=== PATIENT | female | born 1980 | race Caucasian/White ===

== ENCOUNTER 2019-06-05 09:26 | Emergency (ER) | payer OTHER ==
[2019-06-05] MEDS ORDERED: IBUPROFEN 800 MG TABLET PO ONE (09:37)
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
[2019-06-05] MEDS ORDERED: FENTANYL CITRATE INJ/PF 100 MCG/2 ML AMPUL IM ONE (10:02)
[2019-06-05] MEDS ORDERED: OXYCODONE HCL IR 5 MG TABLET PO ONE (10:03)
--- NOTE | 2019-06-05 10:13 | RADIOLOGY REPORT (SQ) ---
EXAM DESCRIPTION: KNEE RIGHT 4 VIEWS COMPLETED DATE/TIME: 06/05/2019 10:01 am REASON FOR STUDY: pain s/p possible twist injury COMPARISON: None. NUMBER OF VIEWS: Two views. TECHNIQUE: AP and lateral radiographic images acquired of the right knee. LIMITATIONS: None. FINDINGS: MINERALIZATION: Normal. BONES: Complex comminuted fracture involving the tibial metadiaphysis and likely extending into the m edial and lateral plateau (Schatzker 6). No significant angulation. Minimal medial displacement of the distal fracture fragment. JOINT: Joint effusion with lipoma hemarthrosis. SOFT TISSUES: Soft tissue swelling about the knee. No radiopaque foreign body. OTHER: No other significant finding. IMPRESSION: Complex comminuted fracture involving the tibial metadiaphysis with extension into the m edial and lateral tibial plateaus (Schatzker type 6). Associated lipohemarthrosis. TECHNICAL DOCUMENTATION: JOB ID: [id number] [employer]- All Rights Reserved Reading location - IP/workstation name: [email or web address]
[2019-06-05 11:27] LABS: ABSOLUTE EOSINOPHILS # (AUTO) 0.1 10^3/uL (0.0-0.6); ABSOLUTE MONOCYTES (AUTO) 0.6 10^3/uL (0.1-1.4); BASOPHILS % (AUTO) 0.3 % (0-2); EOSINOPHILS % (AUTO) 0.5 % (0-6); MEAN CORPUSCULAR HGB CONC 33.2 g/dL (32.0-36.0); TOTAL CELLS COUNTED % (AUTO) 100 %
--- NOTE | 2019-06-05 11:34 | RADIOLOGY REPORT (SQ) ---
EXAM DESCRIPTION: CT RT LOWER EXTREMITY WITHOUT COMPLETED DATE/TIME: 06/05/2019 11:10 am REASON FOR STUDY: knee right tibial fx COMPARISON: None. EXAM PARAMETERS: TECHNIQUE:Axial imaging performed through the right knee with reformatted coronal a nd sagittal imaging windowed for bone and soft tissues. Images saved to PACS. 3D IMAGING: Were 3D images as MIP, SSD, or volume rendering performed at the work station? Yes. All CT scanners at this facility use dose modulation, iterative reconstruction, and/or weight based d osing when appropriate to reduce radiation dose to as low as reasonably achievable (ALARA). [facility]: Dose Right [facility]: SureCare [facility]: Dose Right [facility]: Teradose 4D [facility]: Smart ZipZap RADIATION DOSE: CT Rad equipment meets quality standard of care and radiation dose reduction techniqu es were employed. CTDIvol: 4.1 mGy. DLP: 90 mGy-cm. mGy. LIMITATIONS: None. FINDINGS: SOFT TISSUES: There is a fluid fluid level in the suprapatellar bursa. BONES: There is a comminuted fracture of the proximal tibia. There are 4 sizable fragments in multip le smaller fragments. The fracture involves the tibial spines. There is a coronal component in the medial tibial plateau. It is a dorsal component in the medial aspect of the lateral tibial plateau. The distal femur and patella are intact. The proximal fibula is intact. MINERALIZATION: Normal. OTHER: No other significant finding. IMPRESSION: A significantly comminuted fracture of the proximal tibia as described. Images are avai lable for review. 3D images were created. TECHNICAL DOCUMENTATION: JOB ID: [id number] [facility] [id number]: Final reports with documentation of one or more dose reduction techniques (e.g., Automate d exposure control, adjustment of the mA and/or kV according to patient size, use of iterative recons truction technique) 2010 [employer]- All Rights Reserved Reading location - IP/workstation name: [email or web address]
[2019-06-05 11:36] LABS: ABSOLUTE NEUT (AUTO) 9.3 10^3/uL (1.7-8.2); HEMATOCRIT 38.9 % (36.0-47.0); HEMOGLOBIN 12.9 g/dL (12.0-15.5); MEAN CORPUSCULAR HEMOGLOBIN 28.4 pg (27.0-33.4); MEAN CORPUSCULAR VOLUME 86 fl (80-97); MONOCYTES % (AUTO) 5.5 % (3-13); PLATELET COUNT 262 10^3/uL (150-450); RED BLOOD COUNT 4.55 10^6/uL (3.72-5.28); RED CELL DISTRIBUTION WIDTH 13.1 % (11.5-14.0); SEGMENTED NEUTROPHILS % (AUTO) 84.7 % (42-78)
[2019-06-05 11:42] LABS: ANION GAP 8 (5-19); BLOOD UREA NITROGEN 14 mg/dL (7-20); CARBON DIOXIDE 26 mmol/L (22-30); CHLORIDE 105 mmol/L (98-107); GLUCOSE 94 mg/dL (75-110); POTASSIUM 4.1 mmol/L (3.6-5.0)
[2019-06-05 11:58] VITALS: BP 118/76
== END 2019-06-05 11:58 | disposition home or self-care (01) ==
LOC: ER 09:26
DX: S82.141A Displaced bicondylar fracture of right tibia, initial encounter for closed fracture (principal); V28.4XXA Motorcycle driver injured in noncollision transport accident in traffic accident, initial encounter; Z88.3 Allergy status to other anti-infective agents
CPT/HCPCS: 99284; 96372; 36415; 85025; 80048; 73564; 73700; L1830; J3010

== ENCOUNTER 2019-06-12 06:49 | Day surgery (SDC) | payer OTHER ==
[~2019-06-12 06:49] MED LIST: ACETAMINOPHEN 325 MG TABLET ONE; CEFAZOLIN SODIUM 2 GM in DEXTROSE 5%-WATER 100 ML IV SCH; DEXAMETHASONE SOD PHOS INJ 10 MG/1 ML VIAL IV PRN; MORPHINE SULFATE 10 MG/ML INJ IV PRN; OXYCODONE HCL IR 5 MG TABLET PO PRN; OXYCODONE HCL SR 10 MG TABLET PO ONE; OXYCODONE HCL SR 10 MG TABLET PO PRN; VANCOMYCIN HCL 1,000 MG in DEXTROSE 5%-WATER 250 ML IV ONE
[2019-06-12] MEDS ORDERED: MIDAZOLAM 2 MG/2 ML INJ ONE (08:57)
[2019-06-12] MEDS ORDERED: ONDANSETRON HCL INJ/PF 4 MG/2 ML SDV ONE (08:57)
[2019-06-12] MEDS ORDERED: DEXAMETHASONE SOD PHOSPHATE INJ 4 MG/1 ML VIAL ONE (08:57)
[2019-06-12] MEDS ORDERED: FENTANYL CITRATE INJ/PF 100 MCG/2 ML AMPUL ONE (08:57)
[2019-06-12] MEDS ORDERED: LIDOCAINE 2% INJ-PF (20 MG/ML) 10 ML AMPUL ONE (08:57)
[2019-06-12] MEDS ORDERED: PROPOFOL INJ 200 MG/20 ML VIAL IV ONE (08:58)
[2019-06-12] MEDS ORDERED: BUPIVACAINE HCL 0.25 % INJ/PF (2.5 MG/1 ML) 30 ML VIAL ONE (09:16)
[2019-06-12] MEDS ORDERED: FENTANYL CITRATE INJ/PF 100 MCG/2 ML AMPUL IV PRN ×3 (10:11)
[2019-06-12] MEDS ORDERED: OXYCODONE-ACETAMINOPHEN 5-325 MG TABLET PO PRN ×2 (10:11)
[2019-06-12] MEDS ORDERED: MEPERIDINE HCL/PF INJ 25 MG/1 ML DISP.SYRIN IV PRN (10:11)
[2019-06-12] MEDS ORDERED: ONDANSETRON HCL INJ/PF 4 MG/2 ML SDV IV PRN (10:11)
[2019-06-12] MEDS ORDERED: PROMETHAZINE HCL INJ 25 MG/1 ML VIAL IV PRN ×2 (10:11)
[2019-06-12] MEDS ORDERED: DIPHENHYDRAMINE HCL 50 MG/ML VIAL IV PRN (10:11)
[2019-06-12] MEDS ORDERED: ACETAMINOPHEN 1,000 MG/100 ML RTUPB IV ONE (11:18)
[2019-06-12] MEDS: FENTANYL CITRATE INJ/PF 100 MCG/2 ML AMPUL ONE ×2 (11:20→11:25)
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
[2019-06-12] MEDS ORDERED: ASPIRIN 325 MG TABLET PO SCH (11:45)
[2019-06-12] MEDS ORDERED: OXYCODONE HCL IR 5 MG TABLET PO PRN ×2 (12:02→12:03)
[2019-06-12] MEDS ORDERED: TRAMADOL HCL 50 MG TABLET PO PRN (12:03)
[2019-06-12] MEDS ORDERED: ONDANSETRON 4 MG TAB.RAPDIS PO PRN (12:04)
[2019-06-12] MEDS ORDERED: OXYCODONE HCL SR 10 MG TABLET PO ONE (12:41)
--- NOTE | 2019-06-12 13:37 | RADIOLOGY REPORT (SQ) ---
EXAM DESCRIPTION: TIBIA FIBULA RIGHT; NO CHG FLUORO COMPLETED DATE/TIME: 06/12/2019 1:25 pm REASON FOR STUDY: OR ASSIST WITH FLUORO S82.121A DISP FX OF LATERAL CONDYLE OF RIGHT TIBIA, INIT FO R COMPARISON: 06/05/2019. FLUOROSCOPY TIME: 0.4 minutes. 11 images saved to PACS. TECHNIQUE: Intra-operative images acquired during surgical procedure to evaluate progress. NUMBER OF IMAGES: 11 images. LIMITATIONS: None. FINDINGS: Images acquired during placement of a fixation device. IMPRESSION: IMAGE(S) OBTAINED DURING PROCEDURE. COMMENT: Quality ID [id number]: Final reports for procedures using fluoroscopy that document radiation exp osure indices, or exposure time and number of fluorographic images (if radiation exposure indices are not available) Please consult full operative report of the attending physician for description of the procedure. TECHNICAL DOCUMENTATION: JOB ID: [id number] [employer]- All Rights Reserved Reading location - IP/workstation name: [email or web address]
--- NOTE | 2019-06-12 13:37 | RADIOLOGY REPORT (SQ) ---
EXAM DESCRIPTION: TIBIA FIBULA RIGHT; NO CHG FLUORO COMPLETED DATE/TIME: 06/12/2019 1:25 pm REASON FOR STUDY: OR ASSIST WITH FLUORO S82.121A DISP FX OF LATERAL CONDYLE OF RIGHT TIBIA, INIT FO R COMPARISON: 06/05/2019. FLUOROSCOPY TIME: 0.4 minutes. 11 images saved to PACS. TECHNIQUE: Intra-operative images acquired during surgical procedure to evaluate progress. NUMBER OF IMAGES: 11 images. LIMITATIONS: None. FINDINGS: Images acquired during placement of a fixation device. IMPRESSION: IMAGE(S) OBTAINED DURING PROCEDURE. COMMENT: Quality ID [id number]: Final reports for procedures using fluoroscopy that document radiation exp osure indices, or exposure time and number of fluorographic images (if radiation exposure indices are not available) Please consult full operative report of the attending physician for description of the procedure. TECHNICAL DOCUMENTATION: JOB ID: [id number] [employer]- All Rights Reserved Reading location - IP/workstation name: [email or web address]
[2019-06-12] MEDS ORDERED: ACETAMINOPHEN 325 MG TABLET PO SCH (14:00)
[2019-06-12 14:57] VITALS: BP 106/66
--- NOTE | 2019-06-16 12:21 | Discharge Summary ---
Discharge Summary (SDC) - Discharge Final Diagnosis: Right bicondylar tibial plateau fracture with diaphyseal extension. Date of Surgery: 06/12/19 Condition: Good Forms: ASU Anesthesia D/C Instruction, Discharge POC-Surgical Service Treatment or Instructions: Right tibia fracture external fixation. Do not get things wet. Please keep clean dry and intact. Take pain medication as prescribed. In addition take aspirin 1 tablet of 325 mg once daily mouth to prevent blood clots. Referrals: CRAIG ESCUDERO PA-C [Primary Care Provider] - ANGELA SEAMAN JR, DO [ACTIVE PROVISIONAL STAFF] - (Follow up with Dr Seaman as instructed) Respiratory Treatments at Home: Deep Breathing/Coughing Discharge Activity: Keep Legs Elevated, No Lifting Over 10 Pounds, No tub bath Home Care Assistance: Provided by Family Adaptive Devices on Discharge: Axillary Crutches Report the Following to Your Physician Immediately: Shortness of Breath, Increase in Pain, Fever over 101 Degrees, Unusual Bleeding, Redness, Warmth, Drainage-Yellow, IV Site Infection Signs
== END 2019-06-12 14:25 | disposition home or self-care (01) ==
LOC: OROUT 06:49 → UNDOADMIN 06:49 → INOR 06:49 → EDSTATUS 11:30 → UNDODISIN 14:25 → OROUT 14:25
PROVIDERS: ATTEND Orthopaedic Surgery
DX: S82.141A Displaced bicondylar fracture of right tibia, initial encounter for closed fracture (principal); V86.96XA Unspecified occupant of dirt bike or motor/cross bike injured in nontraffic accident, initial encounter; E06.3 Autoimmune thyroiditis
CPT/HCPCS: 81025; 73590; 01390; 20690; L1830; J2250; J0690; J1100; J3010; J2405; J7060; J2704; J3490; J0131; J3370

== ENCOUNTER 2020-06-15 14:53 | Emergency (ER) | payer OTHER ==
--- NOTE | 2020-06-15 15:25 | ER Document Report ---
ED Medical Screen (RME) - General Chief Complaint: Numbness of Arm Stated Complaint: LEFT ARM/SHOULDER/NECK PAIN Time Seen by Provider: 06/15/20 15:14 Primary Care Provider: NEREYDA DIAZ [Primary Care Provider] - Follow up as needed TRAVEL OUTSIDE OF THE [place] IN LAST 30 DAYS: No - HPI Notes: 06/15/20 15:25 40-year-old female to the emergency department with 2 separate complaints. Since Saturday she has had upper abdominal pain with some nausea and a little bit of diarrhea. She initially had contributed to the fact that she had eaten pizza and she has had some gluten intolerance. However she is continue to feel poorly. She denies any blood in her stool or any blood in vomit. She states that she has not had a fever or body aches. She states this morning she awoke w ith left-sided upper back pain. She states it was fairly significant enough that she asked a chiropractor who is her neighbor if she could be fit in at the chiro office. However, as the day went on, she started to experience radiation into the top part of her left chest and numbness and tingling down her arm. She denies any blunt injury. She denies any shortness of breath. She denies any cough. She has no past medical history for hypertension, diabetes, hyperlipidemia. She is a social smoker but it is occasional only. She does have pertinent past family history for both parents having coronary artery disease. She cannot tell me what age that they were first diagnosed with acute [place]. She is not on any exogenous hormones, denies any leg swelling. Denies any recent travel or recent surgery. I performed a brief medical screening exam on the patient determined that the patient needs further evaluation and management by main side provider. I have placed initial orders to help expedite care. - Related Data Allergies/Adverse Reactions: azithromycin [From Zithromax] Adverse Reaction (Verified 06/12/19 07:37) nausea, vomiting Past Medical History Endocrine Medical History: Reports: Hx Hypothyroidism. Denies: Hx Graves' Disease, Hx Hyperthyroidism GI Medical History: Reports: Hx Gastroesophageal Reflux Disease. Denies: Hx Crohn's Disease, Hx Hiatal Hernia, Hx Irritable Bowel, Hx Liver Failure, Hx Pancreatitis, Hx Ulcer Musculoskeltal Medical History: Denies Hx Systemic Lupus Erythematosus Past Surgical History: Reports: Hx Tubal Ligation. Denies: Hx Appendectomy, Hx Bowel Surgery, Hx Section, Hx Cholecystectomy, Hx Colostomy, Hx Coronary Artery Bypass Graft, Hx Gastric Bypass Surgery, Hx Herniorrhaphy, Hx Hysterectomy, Hx Mastectomy, Hx Pacemaker, Hx Tonsillectomy - Immunizations Hx Diphtheria, Pertussis, Tetanus Vaccination: Yes Physical Exam - Vital signs Vitals: Temp Pulse Resp BP Pulse Ox 98.2 F 90 16 115/80 98 06/15/20 15:12 06/15/20 15:12 06/15/20 15:12 06/15/20 15:12 06/15/20 15:12 Course - Vital Signs Vital signs: Temp Pulse Resp BP Pulse Ox 98.2 F 90 16 115/80 98 06/15/20 15:12 06/15/20 15:12 06/15/20 15:12 06/15/20 15:12 06/15/20 15:12 Doctor's Discharge - Discharge Referrals: NEREYDA DIAZ [Primary Care Provider] - Follow up as needed
--- NOTE | 2020-06-15 15:48 | RADIOLOGY REPORT (SQ) ---
EXAM DESCRIPTION: CHEST 2 VIEWS IMAGES COMPLETED DATE/TIME: 06/15/2020 3:33 pm REASON FOR STUDY: back pain, chest pain, arm numbness COMPARISON: None. EXAM PARAMETERS: NUMBER OF VIEWS: Two views. TECHNIQUE: PA and lateral views of the chest were obtained. RADIATION DOSE: NA LIMITATIONS: None. FINDINGS: LUNGS AND PLEURA: No consolidation, pleural effusion or pneumothorax. MEDIASTINUM AND HILAR STRUCTURES: No mediastinal or hilar contour abnormality. HEART AND VASCULAR STRUCTURES: The cardiac silhouette and pulmonary vasculature are within normal lai its. BONES: No acute findings. HARDWARE: None in the chest. OTHER: No other finding. IMPRESSION: No acute cardiopulmonary process. TECHNICAL DOCUMENTATION: JOB ID: [id number] [employer]- All Rights Reserved Reading location - IP/workstation name: [email or web address]
[2020-06-15 16:00] LABS: ABSOLUTE EOSINOPHILS # (AUTO) 0.2 10^3/uL (0.0-0.6); ABSOLUTE LYMPHOCYTES (AUTO) 2.7 10^3/uL (0.5-4.7); ABSOLUTE MONOCYTES (AUTO) 0.6 10^3/uL (0.1-1.4); ABSOLUTE NEUT (AUTO) 5.2 10^3/uL (1.7-8.2); APPEARANCE,URINE CLEAR; BASOPHILS % (AUTO) 0.5 % (0-2); BILIRUBIN,URINE NEGATIVE (NEGATIVE); COLOR,URINE STRAW; EOSINOPHILS % (AUTO) 2.3 % (0-6); GLUCOSE, URINE NEGATIVE (NEGATIVE); HEMATOCRIT 41.2 % (36.0-47.0); HEMOGLOBIN 14.5 g/dL (12.0-15.5); KETONES,URINE NEGATIVE (NEGATIVE); LYMPHOCYTES % (AUTO) 30.7 % (13-45); MEAN CORPUSCULAR HEMOGLOBIN 30.2 pg (27.0-33.4); MEAN CORPUSCULAR HGB CONC 35.1 g/dL (32.0-36.0); MEAN CORPUSCULAR VOLUME 86 fl (80-97); MONOCYTES % (AUTO) 6.6 % (3-13); PLATELET COUNT 311 10^3/uL (150-450); PROTEIN,URINE NEGATIVE (NEGATIVE); RED CELL DISTRIBUTION WIDTH 12.6 % (11.5-14.0); SEGMENTED NEUTROPHILS % (AUTO) 59.9 % (42-78); TOTAL CELLS COUNTED % (AUTO) 100 %; URINE SPECIFIC GRAVITY 1.003; UROBILINOGEN,URINE NEGATIVE mg/dL (<2.0); WHITE BLOOD COUNT 8.7 10^3/uL (4.0-10.5)
[2020-06-15 16:14] LABS: ALBUMIN 4.8 g/dL (3.5-5.0); ALKALINE PHOSPHATASE 71 U/L (38-126); ANION GAP 12 (5-19); ASPARTATE AMINO TRANSFERASE 25 U/L (14-36); BILIRUBIN,DIRECT 0.2 mg/dL (0.0-0.4); BILIRUBIN,TOTAL 0.4 mg/dL (0.2-1.3); BLOOD UREA NITROGEN 13 mg/dL (7-20); CARBON DIOXIDE 23 mmol/L (22-30); CHLORIDE 104 mmol/L (98-107); GLUCOSE 91 mg/dL (75-110); POTASSIUM 4.1 mmol/L (3.6-5.0); TOTAL PROTEIN 7.8 g/dL (6.3-8.2)
--- NOTE | 2020-06-15 16:21 | EKG REPORT ---
SEVERITY:- NORMAL ECG - SINUS RHYTHM : Confirmed by: Andrea Yousif MD 15-Jun-2020 16:20:33
--- NOTE | 2020-06-15 17:28 | ER Document Report ---
Entered by SONY MONCADA SCRIBE 06/15/20 [id number] Acting as scribe for:ALISA LINDER MD ED General - General Chief Complaint: Numbness of Arm Stated Complaint: LEFT ARM/SHOULDER/NECK PAIN Time Seen by Provider: 06/15/20 15:14 Primary Care Provider: NEREYDA DIAZ [Primary Care Provider] - Follow up as needed Mode of Arrival: Ambulatory Information source: Patient Notes: This 40 year old female patient presents to the emergency department today with complaints of left upper back pain that radiates down her left arm. Patient reports she has intermittent numbness/tingling to the left hand as well. Patient mentions earlier in the week she felt like she was having hot flashes and she had upper abdominal pain with mild nausea after having eaten pizza. She states that she does have a past history of reflux. TRAVEL OUTSIDE OF THE [place] IN LAST 30 DAYS: No - Related Data Allergies/Adverse Reactions: azithromycin [From Zithromax] Adverse Reaction (Verified 06/15/20 18:59) nausea, vomiting Past Medical History - General Information source: Patient - Social History Smoking Status: Current Some Day Smoker Cigarette use (# per day): Yes Frequency of alcohol use: None Drug Abuse: None Lives with: Family Family History: None Endocrine Medical History: Reports: Hx Hypothyroidism GI Medical History: Reports: Hx Gastroesophageal Reflux Disease Past Surgical History: Reports: Hx Breast Surgery - right breast cyst removed, Hx Section - x2, Hx Herniorrhaphy, Hx Orthopedic Surgery - right tibia ORIF, bilateral meniscus repair, Hx Tubal Ligation - Immunizations Hx Diphtheria, Pertussis, Tetanus Vaccination: Yes Review of Systems - Review of Systems Constitutional: No symptoms reported EENT: No symptoms reported Cardiovascular: No symptoms reported Respiratory: No symptoms reported Gastrointestinal: No symptoms reported Genitourinary: No symptoms reported Female Genitourinary: No symptoms reported Musculoskeletal: See HPI, Back pain Skin: No symptoms reported Hematologic/Lymphatic: No symptoms reported Neurological/Psychological: See HPI, Numbness, Tingling -: Yes All other systems reviewed and negative Physical Exam - Vital signs Vitals: Temp Pulse Resp BP Pulse Ox 98.2 F 90 16 115/80 98 06/15/20 15:12 06/15/20 15:12 06/15/20 15:12 06/15/20 15:12 06/15/20 15:12 - Notes Notes: Physical Exam: General: Alert, appears well. HEENT: Normocephalic. Atraumatic. PERRL. Extraocular movements intact. Oropharynx clear. Neck: Supple. Non-tender. Respiratory: No respiratory distress. Clear and equal breath sounds bilaterally. Cardiovascular: Regular rate and rhythm. Abdominal: Right upper quadrant tenderness with palpation. No distension. Normal Bowel Sounds. Back: Left medial scapula tenderness to palpation. No gross abnormalities. Extremities: Moves all four extremities. Upper extremities: Normal inspection. Normal ROM. Lower extremities: Normal inspection. No edema. Normal ROM. Neurological: Normal cognition. AAOx4. Normal speech. Psychological: Normal affect. Normal Mood. Skin: Warm. Dry. Normal color. Course - Vital Signs Vital signs: Temp Pulse Resp BP Pulse Ox 98.2 F 80 16 104/55 L 99 06/15/20 15:12 06/15/20 19:20 06/15/20 19:20 06/15/20 19:20 06/15/20 19:20 - Laboratory Result Diagrams: 06/15/20 15:35 06/15/20 15:48 Laboratory results interpreted by me: 06/15/20 15:48 Lipase 313.4 H - Diagnostic Test Radiology reviewed: Image reviewed, Reports reviewed - Chest x-ray does not show acute cardiopulmonary process. Gallbladder ultrasound is unremarkable. - EKG Interpretation by Ia EKG shows normal: Sinus rhythm, [place], Intervals, QRS Complexes, ST-T Waves Rate: Normal - 78 Rhythm: NSR Discharge - Discharge Clinical Impression: Epigastric abdominal pain Muscle strain of left scapular region Qualifiers: Encounter type: initial encounter Qualified Code(s): S46.912A - Strain of unspecified muscle, fascia and tendon at shoulder and upper arm level, left arm, initial encounter Condition: Stable Disposition: HOME, SELF-CARE Additional Instructions: Scapular Muscle Strain: You have probably strained the left medial scapular muscles. This often occurs with strenuous exertion, or during an injury that suddenly stretches the muscle. The seriousness of a strain varies. Some strains heal within days, others cause problems for months. X-rays cannot show a muscle strain. X-rays are taken only if symptoms suggest that a fracture could be present. The usual treatment of a muscle strain is rest and ice packs. Sometimes a sling may be necessary to rest the muscle. The muscle can be used again once pain subsides. Severe strains require a special exercise and stretching program to prevent permanent stiffness and disability. Your doctor will advise you if this will be necessary. Call the doctor immediately if pain or swelling becomes severe, or if numbness or discoloration develop. Reflux Disease (GERD): Your epigastric abdominal pain is very likely to be Gastro-Esophageal Reflux Disease (GERD), caused by stomach acid refluxing back up into the esophagus. The valve at the end of the esophagus may be weak. This is common in persons with a hiatal hernia. GERD symptoms can include indigestion, chest pain, heartburn, or food "sticking." Certain foods, alcohol, and aspirin can make GERD worse. Treatment depends on the severity. Usually, antacids or acid-suppressing medicines are used. When the esophagus is acutely inflamed, the physician will often prescribe membrane-protective drugs such as Carafate. Some patients benefit from medication such as Reglan that tightens the valve at the top of the stomach. Avoid those foods that bring on your symptoms. For many people, these foods are coffee, chocolate, onions, garlic, and carbonated drinks. Don't use alcohol, aspirin, caffeine, or tobacco. Don't eat late at night -- within 4 hours of bedtime. Don't over-eat. If necessary, elevate the head of your bed about 4 inches so that stomach acid will not roll up into your esophagus. Call the doctor if you develop severe chest pain, inability to swallow fluids, fever, or worsening symptoms. Follow-up with your chiropractor friend to help work on the painful scapular mu scle if needed. Wearing a sling to support the weight of your arm so you can let your shoulder muscles relax may be helpful. Your upper abdominal discomfort is likely caused by acid reflux. Taking something like Prilosec OTC daily for the next several days may help prevent a worsening problem. Your serum lipase was slightly above the normal cutoff for our lab. Pancreatitis can also cause similar upper abdominal symptoms, and the initial treatment for that is basically the same as it is for gastroesophageal reflux. Follow-up with your primary care provider if not improving. RETURN TO THE EMERGENCY ROOM IF ANY NEW OR WORSENING SYMPTOMS. Referrals: NEREYDA DIAZ [Primary Care Provider] - Follow up as needed I personally performed the services described in the documentation, reviewed and edited the documentation which was dictated to the scribe in my presence, and it accurately records my words and actions.
--- NOTE | 2020-06-15 18:22 | RADIOLOGY REPORT (SQ) ---
EXAM DESCRIPTION: U/S ABDOMEN LIMITED W/O DOP IMAGES COMPLETED DATE/TIME: 06/15/2020 6:13 pm REASON FOR STUDY: RUQ abd pain COMPARISON: None. TECHNIQUE: Dynamic and static grayscale images acquired of the abdomen and recorded on PACS. Additio nal selected color Doppler and spectral images recorded. LIMITATIONS: None. FINDINGS: PANCREAS: No masses. Visualized pancreatic duct normal caliber. LIVER: No masses. Echotexture normal. LIVER VASCULATURE: Normal directional flow of the main portal vein and hepatic veins. GALLBLADDER: No stones. Normal wall thickness. No pericholecystic fluid. ULTRASOUND-DETECTED PAREDES'S SIGN: Negative. INTRAHEPATIC DUCTS AND COMMON DUCT: CBD and intrahepatic ducts normal caliber. No filling defects. AORTA: No aneurysm. RIGHT KIDNEY: Normal size, 10.8 cm. Normal echogenicity. No solid or suspicious masses. No hydroneph rosis. No calcifications. PERITONEAL AND RIGHT PLEURAL SPACE: No ascites or effusions. OTHER: No other significant findings. IMPRESSION: NORMAL RIGHT UPPER QUADRANT ULTRASOUND. TECHNICAL DOCUMENTATION: JOB ID: [id number] 2010 [employer]- All Rights Reserved Reading location - IP/workstation name: [email or web address]
[2020-06-15 19:20] VITALS: BP 104/55
== END 2020-06-15 19:20 | disposition home or self-care (01) ==
LOC: ER 14:53
DX: S46.912A Strain of unspecified muscle, fascia and tendon at shoulder and upper arm level, left arm, initial encounter (principal); X58.XXXA Exposure to other specified factors, initial encounter; M54.9 Dorsalgia, unspecified; R20.0 Anesthesia of skin; R20.2 Paresthesia of skin; R10.811 Right upper quadrant abdominal tenderness; R10.13 Epigastric pain; R11.0 Nausea; F17.210 Nicotine dependence, cigarettes, uncomplicated; Z87.19 Personal history of other diseases of the digestive system
CPT/HCPCS: 36415; 71046; 76705; 80053; 81001; 81025; 82550; 83690; 83735; 84484; 85025; 93005; 93010; 99285